=== PATIENT | male | born 1955 | race Caucasian/White ===

== ENCOUNTER 2017-01-16 12:20 | Day surgery (SDC) | payer BC ==
[2017-01-14 11:47] VITALS: BMI 26.6
[2017-01-16] MEDS ORDERED: MIDAZOLAM HCL 2 MG/2 ML SINGLE DOSE VIAL ONE (13:14)
[2017-01-16] MEDS ORDERED: PROPOFOL 20 ML ONE ×2 (13:38→14:15)
[2017-01-16] MEDS ORDERED: BUPIVACAINE HCL/PF 0.25% (2.5MG/ML) 10 ML VIAL IJ ONE (14:47)
[2017-01-16] MEDS ORDERED: ONDANSETRON 4 MG/2 ML VIAL ONE (15:05)
[2017-01-16] MEDS ORDERED: oxyCODONE HCL 5 MG TABLET PO PRN ×2 (15:06)
[2017-01-16] MEDS ORDERED: PROMETHAZINE HCL 25 MG/1 ML VIAL IVPUSH PRN (15:06)
[2017-01-16] MEDS ORDERED: ONDANSETRON 4 MG/2 ML VIAL IVPUSH PRN (15:06)
[2017-01-16] MEDS ORDERED: ONDANSETRON 4 MG/2 ML VIAL IVPUSH ONE (15:06)
[2017-01-16 15:12] VITALS: TEMP 97.6
[2017-01-16] MEDS ORDERED: LACTATED RINGERS SOLUTION 1,000 ML IV SCH (15:15)
[2017-01-16 16:52] VITALS: BP 130/63; PULSE 53
--- NOTE | 2017-01-18 08:53 | OP ---
DATE OF OPERATION: 01/16/2017 PREOPERATIVE DIAGNOSIS: Left thumb ulnar collateral ligament tear. POSTOPERATIVE DIAGNOSIS: Left thumb ulnar collateral ligament tear. OPERATIVE PROCEDURE: Left thumb ulnar collateral ligament repair. SURGEON: Cali Hawkins MD MANAGER MARITIME: NATALY Sanchez ANESTHESIA: General. COMPLICATIONS: None. ESTIMATED BLOOD LOSS: Minimal. INDICATION FOR PROCEDURE: The patient is a 61-year-old male with the above finding, indicated for operative treatment. The risks, benefits, alternatives were discussed with the patient at length. Proper informed consent was obtained. DESCRIPTION OF PROCEDURE: After proper identification of patient and correct operative site, patient was brought to the operating room, placed supine on the operating table, all prominences well padded. General anesthesia was provided by the wet process technician adequate for procedure. Left upper extremity was prepped and draped in the usual sterile fashion. A well-padded tourniquet was placed after sterile prep. Preoperative examination under anesthesia showed a significantly unstable ulnar collateral ligament. Esmarch bandage was used to exsanguinate the left upper extremity, tourniquet was inflated to 250 mmHg. A curvilinear incision was made over the ulnar aspect of the carpometacarpal . Incision was taken sharply through skin with blunt and sharp dissection through subcutaneous tissues, taking care to protect the sensory nerve branch in the area. A Stenner lesion was noted, and there was a small fragment of bone attached to the distal aspect of the ulnar collateral ligament. This was too small to repair and was therefore excised. Good ligament was found that was adequate for repair. This was attached to the metacarpal neck that had been detached from the proximal phalanx. The abductor aponeurosis was divided in order to visualize the ulnar aspect of the proximal phalanx. At this point an Arthrex SwiveLock anchor was placed at the base of the proximal phalanx, and this was double loaded with a No. 3-0 FiberWire suture as well as a labral tape suture. The FiberWire suture was used to repair the ligament back down to the bone, and the labral tape was passed over this and a second anchor was placed on the metacarpal neck to secure the augmented repair with an internal brace labral tape suture. Of note, the bone in the proximal phalanx was fairly soft. I did not feel like this was holding the anchor well, therefore an additional layer of labral tape was added to increase the bulk of the anchor to secure it to the proximal phalanx. This provided secure stable fixation. Wound was irrigated with saline. Full motion of the thumb was achieved, but it was stable at the MP joint. Incision was repaired in layers including the adductor aponeurosis with a 4-0 Vicryl and 4-0 Monocryl sutures. Steri-Strips, sterile dressings were applied. Thumb spica splint was placed. Patient was reversed from anesthesia and brought to recovery room in stable condition. He tolerated the procedure well. NATALY Sanchez, the assistant finance director, was integral throughout the procedure. The procedure could not have been performed without a skilled operative assistant finance director. CALI HAWKINS M.D. [id number]
== END 2017-01-16 16:45 | disposition home or self-care (01) ==
LOC: FASU 12:20
PROVIDERS: ATTEND Orthopaedic Surgery Hand Surgery
PROC: 0XQM0ZZ Repair Left Thumb, Open Approach (ICD-10-PCS; principal; 2017-01-16 13:45)
DX: S63.681A Other sprain of right thumb, initial encounter (principal); X58.XXXA Exposure to other specified factors, initial encounter; Y93.9 Activity, unspecified; Y92.9 Unspecified place or not applicable; Y99.9 Unspecified external cause status